=== PATIENT | male | born 1970 | race Caucasian/White ===

== ENCOUNTER 2024-03-04 07:57 | Day surgery (SDC) | payer OTHER ==
[~2024-03-04] VITALS: Ht 177.8 cm; Wt 83.0 kg
[2024-03-04] VITALS (9 sets, daily range): BP systolic 94–123; BP diastolic 62–83; PULSE 48–60; RESP 12–19; TEMP 97.6; O2SAT 97–100
[2024-03-04] MEDS: cefazolin 2gm/D5W 100mL 100 ML IV ONE (06:25)
[~2024-03-04 07:57] MED LIST: FLUO15OI2 TOP; HYDR-3686 PO; KEN0.1O TOP; KETO15CR2 TOP; MINE1OIL TD; NAPR-56 PO; TACR30OI5 TOP; famotidine 20mg tablet PO ONE; ringers solution, lacted 1,000 ML IV SCH
[2024-03-04 09:07] LABS: ALKALINE PHOSPHATASE 87 IU/L (46-116); BLOOD UREA NITROGEN 13 MG/DL (7-18); BUN/CREATININE RATIO 13.4 (10.0-20.0); CALCIUM 8.7 MG/DL (8.5-10.1); CHLORIDE 107 MMOL/L (99-107); CREATININE 0.97 MG/DL (0.60-1.10); PRE OP ALT 25 U/L (30-65); PRE OP ANION GAP 6 (8-16); PRE OP AST 26 U/L (10-37); PRE OP BILIRUB, TOTAL 0.4 MG/DL (0.0-1.0); PRE OP GLUCOSE 90 MG/DL (70-104); PRE OP POTASSIUM 4.1 MMOL/L (3.4-5.1); PRE OP SODIUM 143 MMOL/L (135-145); TOTAL CARBON DIOXIDE 30.1 MMOL/L (24-32); TOTAL PROTEIN 7.9 G/DL (6.4-8.2); eCRCL 92 ML/MIN; eGFR 81 ML/MIN
--- NOTE | 2024-03-04 09:25 | NUR ---
FALSE LAB RESULTS FROM DILUTED SAMPLE ON ISTAT. WILL USE LABS DONE PRIOR WHICH WERE VALID
[2024-03-04] MEDS ORDERED: triamcinolone acetonide 40mg/ml inj ONE (11:13)
[2024-03-04] MEDS ORDERED: ROPIVAcaine 0.5% (5mg/ml) 30ml vial ONE ×2 (11:13→13:03)
[2024-03-04] MEDS ORDERED: cloNIDine hcl/PF 100mcg/ml inj ONE (11:30)
[2024-03-04] MEDS ORDERED: fentaNYL/PF 50MCG/1 ML 2ML syringe ONE (12:41)
[2024-03-04] MEDS: ROPIVAcaine 0.5% (5mg/ml) 30ml vial IJ ONE (12:49)
[2024-03-04] MEDS ORDERED: LIDOcaine 2% (20mg/ml) 5ml vial ONE (13:02)
[2024-03-04] MEDS ORDERED: midazolam 1 mg/ML 2ml injection ONE (13:02)
[2024-03-04] MEDS ORDERED: propofol inj 20 ML IV ONE (13:02)
[2024-03-04] MEDS ORDERED: ondansetron/PF 4mg/2ml inj ONE (13:03)
[2024-03-04] MEDS ORDERED: dexamethasone sod phosphate 4mg/ml inj. ONE (13:03)
--- NOTE | 2024-03-04 13:13 | NUR ---
Received from OR via GURNEY TO RR 5, accompanied by Anesthesiologist DR PÉREZ and report given by Anesthesiologist. PT PRESENTS ON 10L VIA ORAL AIRWAY WITH MASK, SPO2 AT 100%, VSS. RR EVEN AND UNLABORED, SYMMETRICAL CHEST RISES. PALPABLE STRONG PULSES BILATERAL RADIAL AND PEDAL PULSES. BANDAID TO LEFT KNEE, NO S/S OF BLEEDING AT THIS TIME. LR RUNNING THRU PIV.
--- NOTE | 2024-03-04 13:35 | NUR ---
REMOVED ORAL AIRWAY: PT TOLERATED WELL.
[2024-03-04] MEDS: ondansetron/PF 4mg/2ml inj IV STA (14:17)
--- NOTE | 2024-03-04 14:20 | NUR ---
PATIENT REQUESTING ZOFRAN PROPHYLACTICALLY FOR THE [address] BACK TO [facility]. ORDER REC'D FROM DR PÉREZ
--- NOTE | 2024-03-04 14:23 | NUR ---
PATIENT STABLE FOR D/C PER MD ORDERS. ALL DISCHARGE PAPERWORK WAS REV'D WITH THE PATIENT AND CORRECTIONAL OFFICERS IN ROOM. ALL QUESTIONS, COMMENTS, AND CONCERNS WERE ANSWERED AT THIS TIME. PATIENT WAS ABLE TO GET DRESSED WITH THE HELP OF THE CORRECTIONAL OFFICERS ASSISTANCE. PATIENT WAS ABLE TO AMBULATE (WBAT) TO W/C WITHOUT LOSS OF BALANCE. ALL PERSONAL BELONGINGS WITH PATIENT INCLUDING GLASSES. PATIENT WAS TRANSFERRED INTO [facility] WITHOUT INCIDENT.
== END 2024-03-04 14:23 ==
LOC: PAS 07:57 → EEVIPCON 14:00 → PAS 14:23
PROVIDERS: ATTEND Orthopaedic Surgery
DX: M24.662 Ankylosis, left knee (principal); G89.18 Other acute postprocedural pain; E78.5 Hyperlipidemia, unspecified; Z79.899 Other long term (current) drug therapy; Z96.652 Presence of left artificial knee joint
CPT/HCPCS: 20610; 27570; 36415; 64447; 80047; 80053; J0690; J0735; J1100; J2250; J2405; J2704; J2795; J3010; J3301; J3490; J7120; Z7506; Z7512; A4618